=== PATIENT | female | born 1950 | race Caucasian/White ===

== ENCOUNTER → 2018-11-14 | Outpatient (CLI) | payer MEDICARE, OTHER ==
[2005-05-08 09:05] VITALS: TEMP 96.7
== END ==
LOC: MC.RAD 08:16
DX: Z12.31 Encounter for screening mammogram for malignant neoplasm of breast (principal)

== ENCOUNTER 2022-10-23 15:59 | Emergency (ER) | payer MEDICARE ==
[~2022-10-23] VITALS: Ht 152.4 cm; Wt 52.3 kg
[2022-10-23 16:12] VITALS: BP 174/79; TEMP 98.4
[2022-10-23 18:57] VITALS: PULSE 79
== END 2022-10-23 18:57 | disposition home or self-care (01) ==
LOC: COL.ER 15:59
DX: S61.411A Laceration without foreign body of right hand, initial encounter (principal); Z28.310 Unvaccinated for COVID-19; Z23 Encounter for immunization; W29.3XXA Contact with powered garden and outdoor hand tools and machinery, initial encounter; Y92.009 Unspecified place in unspecified non-institutional (private) residence as the place of occurrence of the external cause